=== PATIENT | male | born 1960 | race Caucasian/White ===

== ENCOUNTER 2016-10-19 19:10 | Inpatient (IN) | payer BC ==
[~2016-10-19 19:10] MED LIST: ANTIBIOTIC; DEXAMETHASONE4 M1 PO; KEPPRA500 M3 PO; MOTRIN IB200 M1 PO; TYLENOL325 M2 PO; VIAGRA PO
[2016-10-19] MEDS ORDERED: MIRALAX17 G2 PO (19:52)
[2016-10-19] MEDS ORDERED: TYLENOL325 M2 PO (19:52)
[2016-10-19] MEDS ORDERED: SENNA8.6 M2 PO (19:53)
[2016-10-19] MEDS ORDERED: KEPPRA500 M3 PO (19:54)
[2016-10-20 03:36] LABS: HCT-HEMATOCRIT 36.5 % (36.0-53.5); HGB-HEMOGLOBIN 12.9 gm/dl (13.5-17.0); IMMATURE GRANULOCYTES ABSOLUTE 0.01 tho/cmm (0-0.03); IMMATURE GRANULOCYTES PERCENT 0.3 % (0-0.3); LYMPH % 40.5 % (20-45); LYMPH ABSOLUTE COUNT 1.4 tho/cmm (0.8-4.5); MCHC MEAN CORPUSCULAR HGB CONC 35.3 % (32.0-36.0); MCV (MEAN CELL VOLUME) 87.7 fl (82.0-96.0); MEAN PLATELET VOLUME 8.9 cmc (9.4-12.4); MONO % 12.1 % (0-12); MONOCYTE ABSOLUTE COUNT 0.4 tho/cmm (0.0-1.2); NEUTROPHIL ABSOLUTE COUNT 1.6 tho/cmm (1.6-8.0); NEUTROPHIL-AUTOMATED 1.6 tho/cmm (1.6-8.0); NEUTROPHILS % 47.1 % (40-80); PLATELET COUNT 266 tho/cmm (150-450); RED BLOOD COUNT 4.16 mil/cmm (4.40-5.70); RED CELL DISTRIBUTION WIDTH 14.9 % (12.4-16.4); WHITE BLOOD COUNT 3.4 tho/cmm (4.0-10.0)
[2016-10-20 03:38] LABS: INR 1.1 INR (0.9-1.1); PROTHROMBIN TIME 12.2 SECONDS (9.0-13.6)
[2016-10-20 03:43] LABS: ALB/GLOB RATIO 0.8 (0.8-2.0); ALBUMIN 2.4 g/dl (3.5-5.2); ALKALINE PHOSPHATASE 59 U/L (40-129); ALT/SGPT 26 U/L (0-41); ANION GAP 12 mmol/L (5-15); AST/SGOT 19 U/L (0-40); BILIRUBIN,INDIRECT 0.4 mg/dL (0.0-1.0); BILIRUBIN,TOTAL 0.5 mg/dl (0.0-1.0); BLOOD UREA NITROGEN 9 mg/dl (6-25); CALCIUM 7.8 mg/dl (8.6-10.2); CARBON DIOXIDE-VENOUS 24 mmol/L (22-29); CHLORIDE 97 mmol/L (98-110); GLUCOSE 95 mg/dl (65-120); POTASSIUM 3.9 mmol/L (3.4-5.0); SODIUM 133 mmol/L (135-146); eGFR VALUE FOR BLACK >60 mL/Min
[2016-10-20 04:19] LABS: BILIRUBIN,DIRECT 0.1 mg/dl (0.0-0.3)
[2016-10-20 16:03] LABS: BASO % 0.6 % (0-2); HCT-HEMATOCRIT 38.4 % (36.0-53.5); HGB-HEMOGLOBIN 13.5 gm/dl (13.5-17.0); IMMATURE GRANULOCYTES ABSOLUTE 0.02 tho/cmm (0-0.03); IMMATURE GRANULOCYTES PERCENT 1.2 % (0-0.3); LYMPH % 55.5 % (20-45); MCH (MEAN CORPUSCULAR HGB) 30.8 pg (28.0-32.0); MCHC MEAN CORPUSCULAR HGB CONC 35.2 % (32.0-36.0); MCV (MEAN CELL VOLUME) 87.5 fl (82.0-96.0); MEAN PLATELET VOLUME 8.8 cmc (9.4-12.4); MONOCYTE ABSOLUTE COUNT 0.2 tho/cmm (0.0-1.2); NEUTROPHIL ABSOLUTE COUNT 0.6 tho/cmm (1.6-8.0); NEUTROPHIL-AUTOMATED 0.6 tho/cmm (1.6-8.0); NEUTROPHILS % 31.7 % (40-80); PLATELET COUNT 234 tho/cmm (150-450); RED BLOOD COUNT 4.39 mil/cmm (4.40-5.70); RED CELL DISTRIBUTION WIDTH 14.9 % (12.4-16.4)
[2016-10-20 16:06] LABS: ABG CO2 ARTERIAL 27 mmol/L (21-27); ARTERIAL BLD GAS O2 SATURATION 92 % (95-98); ARTERIAL BLOOD GAS PCO2 39 mmHg (32-45); ARTERIAL PO2 63 mmHg (70-100); BICARBONATE 25 mmol/L (21-28); BLOOD GAS BASE EXCESS 2 mM/L (-/+3); PH 7.43 Units (7.35-7.45)
[2016-10-20 16:07] LABS: INR 1.1 INR (0.9-1.1); PROTHROMBIN TIME 12.6 SECONDS (9.0-13.6)
[2016-10-20 16:19] LABS: WHITE BLOOD COUNT 1.7 tho/cmm (4.0-10.0)
[2016-10-20 16:21] LABS: ALB/GLOB RATIO 0.8 (0.8-2.0); ALBUMIN 2.4 g/dl (3.5-5.2); ALKALINE PHOSPHATASE 58 U/L (40-129); ALT/SGPT 21 U/L (0-41); ANION GAP 12 mmol/L (5-15); AST/SGOT 20 U/L (0-40); BILIRUBIN,TOTAL 0.7 mg/dl (0.0-1.0); BLOOD UREA NITROGEN 8 mg/dl (6-25); CALCIUM 7.6 mg/dl (8.6-10.2); CARBON DIOXIDE-VENOUS 25 mmol/L (22-29); CHLORIDE 96 mmol/L (98-110); GLUCOSE 89 mg/dl (65-120); POTASSIUM 3.9 mmol/L (3.4-5.0); SODIUM 133 mmol/L (135-146); eGFR VALUE FOR BLACK >60 mL/Min
[2016-10-20 16:37] LABS: PROCALCITONIN 1.12 ng/ml (0.05-0.09)
[2016-10-21 04:00] LABS: HCT-HEMATOCRIT 39.5 % (36.0-53.5); HGB-HEMOGLOBIN 13.7 gm/dl (13.5-17.0); MCH (MEAN CORPUSCULAR HGB) 30.3 pg (28.0-32.0); MCHC MEAN CORPUSCULAR HGB CONC 34.7 % (32.0-36.0); MCV (MEAN CELL VOLUME) 87.4 fl (82.0-96.0); MEAN PLATELET VOLUME 8.9 cmc (9.4-12.4); NEUTROPHIL-AUTOMATED 2.9 tho/cmm (1.6-8.0); PLATELET COUNT 247 tho/cmm (150-450); RED BLOOD COUNT 4.52 mil/cmm (4.40-5.70); RED CELL DISTRIBUTION WIDTH 14.9 % (12.4-16.4)
[2016-10-21 04:09] LABS: ALB/GLOB RATIO 0.7 (0.8-2.0); ALBUMIN 2.3 g/dl (3.5-5.2); ALKALINE PHOSPHATASE 56 U/L (40-129); ALT/SGPT 24 U/L (0-41); ANION GAP 12 mmol/L (5-15); AST/SGOT 23 U/L (0-40); BILIRUBIN,TOTAL 0.7 mg/dl (0.0-1.0); BLOOD UREA NITROGEN 7 mg/dl (6-25); CARBON DIOXIDE-VENOUS 27 mmol/L (22-29); CHLORIDE 93 mmol/L (98-110); CREATININE 0.61 mg/dl (0.67-1.17); GLUCOSE 92 mg/dl (65-120); POTASSIUM 4.2 mmol/L (3.4-5.0); SODIUM 132 mmol/L (135-146); eGFR VALUE FOR BLACK >60 mL/Min
[2016-10-21 07:14] LABS: BAND % 48 % (0-20); BAND ABSOLUTE COUNT 1.9 tho/cmm (0-2.0)
[2016-10-22 04:57] LABS: HCT-HEMATOCRIT 33.5 % (36.0-53.5); HGB-HEMOGLOBIN 11.7 gm/dl (13.5-17.0); MCH (MEAN CORPUSCULAR HGB) 30.7 pg (28.0-32.0); MCHC MEAN CORPUSCULAR HGB CONC 34.9 % (32.0-36.0); MCV (MEAN CELL VOLUME) 87.9 fl (82.0-96.0); MEAN PLATELET VOLUME 8.9 cmc (9.4-12.4); NEUTROPHIL-AUTOMATED 9.7 tho/cmm (1.6-8.0); PLATELET COUNT 270 tho/cmm (150-450); RED BLOOD COUNT 3.81 mil/cmm (4.40-5.70); RED CELL DISTRIBUTION WIDTH 14.9 % (12.4-16.4)
[2016-10-22 05:11] LABS: WHITE BLOOD COUNT 11.5 tho/cmm (4.0-10.0)
[2016-10-22 05:15] LABS: ANION GAP 9 mmol/L (5-15); BLOOD UREA NITROGEN 10 mg/dl (6-25); CALCIUM 8.4 mg/dl (8.6-10.2); CARBON DIOXIDE-VENOUS 30 mmol/L (22-29); CHLORIDE 99 mmol/L (98-110); CREATININE 0.52 mg/dl (0.67-1.17); GLUCOSE 135 mg/dl (65-120); SODIUM 138 mmol/L (135-146); eGFR VALUE FOR BLACK >60 mL/Min
[2016-10-22 08:16] LABS: BAND % 55 % (0-20); BAND ABSOLUTE COUNT 6.3 tho/cmm (0-2.0)
--- NOTE | 2016-10-22 11:35 | NUR ---
UP IN CHAIR, FAMILY AT BEDSIDE. GAVE OPTION TO SIGN COMMUNITY DNR/DNI FORM. PT WANTS TO DO SO WITH PRESENT. SHE WILL BE HER TUESDAY, WILL CHECK BACK THEN.
[2016-10-23 05:01] LABS: BASO % 0.4 % (0-2); BASO ABSOLUTE COUNT 0.1 tho/cmm (0.0-0.2); HGB-HEMOGLOBIN 11.2 gm/dl (13.5-17.0); IMMATURE GRANULOCYTES ABSOLUTE 0.09 tho/cmm (0-0.03); IMMATURE GRANULOCYTES PERCENT 0.5 % (0-0.3); LYMPH % 6.7 % (20-45); LYMPH ABSOLUTE COUNT 1.1 tho/cmm (0.8-4.5); MCH (MEAN CORPUSCULAR HGB) 29.9 pg (28.0-32.0); MCHC MEAN CORPUSCULAR HGB CONC 33.9 % (32.0-36.0); MCV (MEAN CELL VOLUME) 88.2 fl (82.0-96.0); MEAN PLATELET VOLUME 8.7 cmc (9.4-12.4); MONO % 7.5 % (0-12); MONOCYTE ABSOLUTE COUNT 1.3 tho/cmm (0.0-1.2); NEUTROPHIL ABSOLUTE COUNT 14.4 tho/cmm (1.6-8.0); NEUTROPHIL-AUTOMATED 14.4 tho/cmm (1.6-8.0); NEUTROPHILS % 84.9 % (40-80); PLATELET COUNT 277 tho/cmm (150-450); RED BLOOD COUNT 3.74 mil/cmm (4.40-5.70); WHITE BLOOD COUNT 16.9 tho/cmm (4.0-10.0)
[2016-10-23 05:35] LABS: ANION GAP 9 mmol/L (5-15); BLOOD UREA NITROGEN 9 mg/dl (6-25); CARBON DIOXIDE-VENOUS 30 mmol/L (22-29); CHLORIDE 100 mmol/L (98-110); GLUCOSE 144 mg/dl (65-120); POTASSIUM 3.7 mmol/L (3.4-5.0); SODIUM 139 mmol/L (135-146); eGFR VALUE FOR BLACK >60 mL/Min
[2016-10-24 04:22] LABS: HCT-HEMATOCRIT 32.7 % (36.0-53.5); HGB-HEMOGLOBIN 11.2 gm/dl (13.5-17.0); MCH (MEAN CORPUSCULAR HGB) 30.4 pg (28.0-32.0); MCHC MEAN CORPUSCULAR HGB CONC 34.3 % (32.0-36.0); MCV (MEAN CELL VOLUME) 88.9 fl (82.0-96.0); MEAN PLATELET VOLUME 9.2 cmc (9.4-12.4); NEUTROPHIL-AUTOMATED 13.2 tho/cmm (1.6-8.0); PLATELET COUNT 283 tho/cmm (150-450); RED BLOOD COUNT 3.68 mil/cmm (4.40-5.70); RED CELL DISTRIBUTION WIDTH 14.9 % (12.4-16.4); WHITE BLOOD COUNT 18.3 tho/cmm (4.0-10.0)
[2016-10-24 04:36] LABS: ANION GAP 8 mmol/L (5-15); BLOOD UREA NITROGEN 9 mg/dl (6-25); CARBON DIOXIDE-VENOUS 33 mmol/L (22-29); CHLORIDE 100 mmol/L (98-110); CREATININE 0.48 mg/dl (0.67-1.17); GLUCOSE 123 mg/dl (65-120); POTASSIUM 3.1 mmol/L (3.4-5.0); SODIUM 141 mmol/L (135-146); eGFR VALUE FOR BLACK >60 mL/Min
[2016-10-24 06:08] LABS: BAND % 4 % (0-20); BAND ABSOLUTE COUNT 0.7 tho/cmm (0-2.0)
[2016-10-24 09:30] LABS: URINE BILIRUBIN NEGATIVE (NEG); URINE BLOOD NEGATIVE (NEG); URINE GLUCOSE (UA) NEGATIVE (NEG); URINE KETONE NEGATIVE (NEG); URINE LEUKOCYTE ESTERASE NEGATIVE (NEG); URINE NITRITE NEGATIVE (NEG); URINE PROTEIN NEGATIVE (NEG)
[2016-10-24 09:31] LABS: URINE APPEARANCE CLEAR; URINE COLOR YELLOW; URINE SPECIFIC GRAVITY 1.013 (1.003-1.030)
[2016-10-24 10:31] LABS: PROCALCITONIN 0.57 ng/ml (0.05-0.09)
[2016-10-25 04:37] LABS: HCT-HEMATOCRIT 37.2 % (36.0-53.5); HGB-HEMOGLOBIN 12.5 gm/dl (13.5-17.0); MCH (MEAN CORPUSCULAR HGB) 30.3 pg (28.0-32.0); MCHC MEAN CORPUSCULAR HGB CONC 33.6 % (32.0-36.0); MCV (MEAN CELL VOLUME) 90.3 fl (82.0-96.0); MEAN PLATELET VOLUME 8.9 cmc (9.4-12.4); PLATELET COUNT 248 tho/cmm (150-450); RED BLOOD COUNT 4.12 mil/cmm (4.40-5.70); RED CELL DISTRIBUTION WIDTH 15.3 % (12.4-16.4); WHITE BLOOD COUNT 17.6 tho/cmm (4.0-10.0)
[2016-10-25 05:10] LABS: ANION GAP 10 mmol/L (5-15); BLOOD UREA NITROGEN 12 mg/dl (6-25); CALCIUM 7.9 mg/dl (8.6-10.2); CARBON DIOXIDE-VENOUS 28 mmol/L (22-29); CHLORIDE 101 mmol/L (98-110); CREATININE 0.55 mg/dl (0.67-1.17); GLUCOSE 86 mg/dl (65-120); POTASSIUM 3.8 mmol/L (3.4-5.0); SODIUM 139 mmol/L (135-146); eGFR VALUE FOR BLACK >60 mL/Min
[2016-10-25 06:09] LABS: PROCALCITONIN 0.33 ng/ml (0.05-0.09)
[2016-10-25 08:42] LABS: BAND % 15 % (0-20); BAND ABSOLUTE COUNT 2.6 tho/cmm (0-2.0)
[2016-10-26 04:52] LABS: HCT-HEMATOCRIT 40.4 % (36.0-53.5); HGB-HEMOGLOBIN 13.5 gm/dl (13.5-17.0); MCHC MEAN CORPUSCULAR HGB CONC 33.4 % (32.0-36.0); MCV (MEAN CELL VOLUME) 89.8 fl (82.0-96.0); MEAN PLATELET VOLUME 9.2 cmc (9.4-12.4); NEUTROPHIL-AUTOMATED 8.2 tho/cmm (1.6-8.0); PLATELET COUNT 234 tho/cmm (150-450); RED CELL DISTRIBUTION WIDTH 15.6 % (12.4-16.4)
[2016-10-26 07:48] LABS: BAND % 7 % (0-20); BAND ABSOLUTE COUNT 1.1 tho/cmm (0-2.0)
[2016-10-27 04:26] LABS: HCT-HEMATOCRIT 39.2 % (36.0-53.5); HGB-HEMOGLOBIN 13.4 gm/dl (13.5-17.0); MCH (MEAN CORPUSCULAR HGB) 30.3 pg (28.0-32.0); MCHC MEAN CORPUSCULAR HGB CONC 34.2 % (32.0-36.0); MCV (MEAN CELL VOLUME) 88.7 fl (82.0-96.0); MEAN PLATELET VOLUME 9.3 cmc (9.4-12.4); NEUTROPHIL-AUTOMATED 10.1 tho/cmm (1.6-8.0); PLATELET COUNT 205 tho/cmm (150-450); RED BLOOD COUNT 4.42 mil/cmm (4.40-5.70); RED CELL DISTRIBUTION WIDTH 15.7 % (12.4-16.4); WHITE BLOOD COUNT 15.2 tho/cmm (4.0-10.0)
[2016-10-27 04:41] LABS: ANION GAP 13 mmol/L (0-20); BLOOD UREA NITROGEN 10 mg/dl (6-24); CALCIUM 7.7 mg/dl (8.5-10.5); CARBON DIOXIDE-VENOUS 26 mmol/L (22-32); CHLORIDE 100 mmol/l (96-110); GLUCOSE 92 mg/dL (70-110); POTASSIUM 4.2 mmol/L (3.7-5.1); SODIUM 135 mmol/L (135-145); eGFR VALUE FOR BLACK >60 mL/Min
[2016-10-27 07:19] LABS: BAND % 17 % (0-20); BAND ABSOLUTE COUNT 2.6 tho/cmm (0-2.0)
[2016-10-27 07:22] LABS: WBC MORPHOLOGY TOXIC GRANULATION
[2016-10-28 04:35] LABS: HCT-HEMATOCRIT 34.4 % (36.0-53.5); HGB-HEMOGLOBIN 11.6 gm/dl (13.5-17.0); MCH (MEAN CORPUSCULAR HGB) 29.7 pg (28.0-32.0); MCHC MEAN CORPUSCULAR HGB CONC 33.7 % (32.0-36.0); MCV (MEAN CELL VOLUME) 88.2 fl (82.0-96.0); MEAN PLATELET VOLUME 9.2 cmc (9.4-12.4); NEUTROPHIL-AUTOMATED 11.8 tho/cmm (1.6-8.0); PLATELET COUNT 185 tho/cmm (150-450); WHITE BLOOD COUNT 14.9 tho/cmm (4.0-10.0)
[2016-10-28 04:43] LABS: BASO % 0.5 % (0-2); BASO ABSOLUTE COUNT 0.1 tho/cmm (0.0-0.2); EOS % 0.1 % (0-7); IMMATURE GRANULOCYTES PERCENT 8.7 % (0-0.3); LYMPH % 7.9 % (20-45); LYMPH ABSOLUTE COUNT 1.2 tho/cmm (0.8-4.5); MONO % 3.6 % (0-12); MONOCYTE ABSOLUTE COUNT 0.5 tho/cmm (0.0-1.2); NEUTROPHIL ABSOLUTE COUNT 11.8 tho/cmm (1.6-8.0); NEUTROPHILS % 79.2 % (40-80)
[2016-10-28 04:49] LABS: ANION GAP 14 mmol/L (0-20); BLOOD UREA NITROGEN 8 mg/dl (6-24); CALCIUM 7.5 mg/dl (8.5-10.5); CARBON DIOXIDE-VENOUS 23 mmol/L (22-32); CHLORIDE 102 mmol/l (96-110); GLUCOSE 74 mg/dL (70-110); POTASSIUM 4.1 mmol/L (3.7-5.1); SODIUM 135 mmol/L (135-145); eGFR VALUE FOR BLACK >60 mL/Min
[2016-10-28 22:57] LABS: PROCALCITONIN 0.31 ng/ml (0.05-0.09)
[2016-10-29 05:56] LABS: BASO % 0.3 % (0-2); HCT-HEMATOCRIT 33.2 % (36.0-53.5); HGB-HEMOGLOBIN 11.3 gm/dl (13.5-17.0); IMMATURE GRANULOCYTES ABSOLUTE 0.48 tho/cmm (0-0.03); IMMATURE GRANULOCYTES PERCENT 4.8 % (0-0.3); MCH (MEAN CORPUSCULAR HGB) 29.9 pg (28.0-32.0); MCV (MEAN CELL VOLUME) 87.8 fl (82.0-96.0); MEAN PLATELET VOLUME 9.1 cmc (9.4-12.4); MONO % 7.3 % (0-12); MONOCYTE ABSOLUTE COUNT 0.7 tho/cmm (0.0-1.2); NEUTROPHIL ABSOLUTE COUNT 7.8 tho/cmm (1.6-8.0); NEUTROPHIL-AUTOMATED 7.8 tho/cmm (1.6-8.0); NEUTROPHILS % 77.6 % (40-80); PLATELET COUNT 197 tho/cmm (150-450); RED BLOOD COUNT 3.78 mil/cmm (4.40-5.70); RED CELL DISTRIBUTION WIDTH 16.2 % (12.4-16.4); WHITE BLOOD COUNT 10.1 tho/cmm (4.0-10.0)
[2016-10-29 06:12] LABS: ANION GAP 11 mmol/L (0-20); BLOOD UREA NITROGEN 8 mg/dl (6-24); CALCIUM 7.5 mg/dl (8.5-10.5); CARBON DIOXIDE-VENOUS 28 mmol/L (22-32); CHLORIDE 101 mmol/l (96-110); GLUCOSE 98 mg/dL (70-110); POTASSIUM 3.6 mmol/L (3.7-5.1); SODIUM 136 mmol/L (135-145); eGFR VALUE FOR BLACK >60 mL/Min
[2016-10-30 05:47] LABS: ALB/GLOB RATIO 0.3 (0.8-2.0); ALBUMIN 1.4 g/dl (3.5-5.0); ALT/SGPT 38 U/L (12-78); BILIRUBIN,TOTAL 0.3 mg/dl (0.0-1.5); BLOOD UREA NITROGEN 9 mg/dl (6-24); CALCIUM 7.1 mg/dl (8.5-10.5); CARBON DIOXIDE-VENOUS 30 mmol/L (22-32); CHLORIDE 103 mmol/l (96-110); GLUCOSE 128 mg/dL (70-110); PHOSPHOROUS 2.6 mg/dl (2.5-4.9); SODIUM 139 mmol/L (135-145); eGFR VALUE FOR BLACK >60 mL/Min
[2016-10-30 05:49] LABS: ALKALINE PHOSPHATASE 60 U/L (33-138); PREALBUMIN 10.8 mg/dl (20.0-40.0)
[2016-10-30 06:00] LABS: ANION GAP 10 mmol/L (0-20); AST/SGOT 55 U/L (10-40); MAGNESIUM 1.9 mg/dl (1.3-2.6)
[2016-10-31 04:56] LABS: HGB-HEMOGLOBIN 11.1 gm/dl (13.5-17.0); PLATELET COUNT 261 tho/cmm (150-450)
[2016-10-31 05:28] LABS: ANION GAP 13 mmol/L (0-20); BLOOD UREA NITROGEN 7 mg/dl (6-24); CALCIUM 7.4 mg/dl (8.5-10.5); CARBON DIOXIDE-VENOUS 28 mmol/L (22-32); CHLORIDE 97 mmol/l (96-110); GLUCOSE 118 mg/dL (70-110); SODIUM 134 mmol/L (135-145); eGFR VALUE FOR BLACK >60 mL/Min
[2016-10-31 05:37] LABS: POTASSIUM 3.7 mmol/L (3.7-5.1)
[2016-11-01 05:31] LABS: BASO % 0.3 % (0-2); BASO ABSOLUTE COUNT 0.1 tho/cmm (0.0-0.2); EOS % 0.1 % (0-7); HCT-HEMATOCRIT 31.4 % (36.0-53.5); HGB-HEMOGLOBIN 10.8 gm/dl (13.5-17.0); IMMATURE GRANULOCYTES ABSOLUTE 0.31 tho/cmm (0-0.03); LYMPH % 11.3 % (20-45); LYMPH ABSOLUTE COUNT 1.7 tho/cmm (0.8-4.5); MCH (MEAN CORPUSCULAR HGB) 30.3 pg (28.0-32.0); MCHC MEAN CORPUSCULAR HGB CONC 34.4 % (32.0-36.0); MCV (MEAN CELL VOLUME) 88.2 fl (82.0-96.0); MONOCYTE ABSOLUTE COUNT 1.1 tho/cmm (0.0-1.2); NEUTROPHIL ABSOLUTE COUNT 12.1 tho/cmm (1.6-8.0); NEUTROPHIL-AUTOMATED 12.1 tho/cmm (1.6-8.0); NEUTROPHILS % 79.3 % (40-80); PLATELET COUNT 311 tho/cmm (150-450); RED BLOOD COUNT 3.56 mil/cmm (4.40-5.70); RED CELL DISTRIBUTION WIDTH 16.4 % (12.4-16.4)
[2016-11-01 05:43] LABS: WHITE BLOOD COUNT 15.2 tho/cmm (4.0-10.0)
[2016-11-01 05:48] LABS: ALB/GLOB RATIO 0.3 (0.8-2.0); ALBUMIN 1.5 g/dl (3.5-5.0); ALKALINE PHOSPHATASE 90 U/L (33-138); BILIRUBIN,TOTAL 0.3 mg/dl (0.0-1.5); BLOOD UREA NITROGEN 8 mg/dl (6-24); CALCIUM 7.3 mg/dl (8.5-10.5); CARBON DIOXIDE-VENOUS 27 mmol/L (22-32); CHLORIDE 101 mmol/l (96-110); GLUCOSE 124 mg/dL (70-110); SODIUM 135 mmol/L (135-145); eGFR VALUE FOR BLACK >60 mL/Min
[2016-11-01 05:57] LABS: ALT/SGPT 76 U/L (12-78); ANION GAP 11 mmol/L (0-20); AST/SGOT 92 U/L (10-40); POTASSIUM 3.9 mmol/L (3.7-5.1)
[2016-11-02 05:52] LABS: BASO % 0.4 % (0-2); BASO ABSOLUTE COUNT 0.1 tho/cmm (0.0-0.2); EOS % 0.1 % (0-7); HCT-HEMATOCRIT 31.2 % (36.0-53.5); HGB-HEMOGLOBIN 10.9 gm/dl (13.5-17.0); IMMATURE GRANULOCYTES ABSOLUTE 0.33 tho/cmm (0-0.03); IMMATURE GRANULOCYTES PERCENT 2.5 % (0-0.3); LYMPH ABSOLUTE COUNT 1.8 tho/cmm (0.8-4.5); MCH (MEAN CORPUSCULAR HGB) 30.6 pg (28.0-32.0); MCHC MEAN CORPUSCULAR HGB CONC 34.9 % (32.0-36.0); MCV (MEAN CELL VOLUME) 87.6 fl (82.0-96.0); MEAN PLATELET VOLUME 9.2 cmc (9.4-12.4); MONO % 8.9 % (0-12); MONOCYTE ABSOLUTE COUNT 1.2 tho/cmm (0.0-1.2); NEUTROPHIL ABSOLUTE COUNT 10.1 tho/cmm (1.6-8.0); NEUTROPHIL-AUTOMATED 10.1 tho/cmm (1.6-8.0); NEUTROPHILS % 75.1 % (40-80); PLATELET COUNT 336 tho/cmm (150-450); RED BLOOD COUNT 3.56 mil/cmm (4.40-5.70); RED CELL DISTRIBUTION WIDTH 16.8 % (12.4-16.4); WHITE BLOOD COUNT 13.4 tho/cmm (4.0-10.0)
[2016-11-02 06:12] LABS: ALB/GLOB RATIO 0.3 (0.8-2.0); ALBUMIN 1.6 g/dl (3.5-5.0); ALKALINE PHOSPHATASE 88 U/L (33-138); ALT/SGPT 70 U/L (12-78); BILIRUBIN,TOTAL 0.4 mg/dl (0.0-1.5); BLOOD UREA NITROGEN 9 mg/dl (6-24); CALCIUM 7.5 mg/dl (8.5-10.5); CARBON DIOXIDE-VENOUS 26 mmol/L (22-32); CHLORIDE 99 mmol/l (96-110); GLUCOSE 132 mg/dL (70-110); SODIUM 133 mmol/L (135-145); eGFR VALUE FOR BLACK >60 mL/Min
[2016-11-02 06:15] LABS: ANION GAP 12 mmol/L (0-20); AST/SGOT 58 U/L (10-40); POTASSIUM 4.2 mmol/L (3.7-5.1)
[2016-11-02 07:09] LABS: WBC MORPHOLOGY TOXIC GRANULATION
--- NOTE | 2016-11-02 15:52 | NUR ---
VISIT MADE WITH Dave MONTILLA NP. F/U VISIT MADE WITH , PT RESTING, NICK WOODS, ANITA, AT BEDSIDE. GATHERING FAMILY TO DECIDE ON A DC PLAN. ASKING ABOUT MEETING WITH MORE DOCTORS IF THE FAMILY NEEDS THAT TO MAKE A DECISION. TOLD WE WOULD DO THE BEST WE CAN TO MEET THEIR NEEDS. ALSO OFFERED TO READ DOCTOR PROGRESS NOTES TO FAMILY IF THAT WOULD HELP. WILL UPDATE Dave MONTILLA NP ON FAMILY REQUEST. LESS EMOTIONAL THIS AFTERNOON. PT AWAKE BUT DID NOT PARTICIPATE IN THE CONVERSATION.
[2016-11-03 08:28] LABS: ANION GAP 10 mmol/L (0-20); BLOOD UREA NITROGEN 10 mg/dl (6-24); CALCIUM 7.7 mg/dl (8.5-10.5); CARBON DIOXIDE-VENOUS 26 mmol/L (22-32); CHLORIDE 106 mmol/l (96-110); GLUCOSE 130 mg/dL (70-110); SODIUM 138 mmol/L (135-145); eGFR VALUE FOR BLACK >60 mL/Min
[2016-11-03 08:29] LABS: POTASSIUM 4.3 mmol/L (3.7-5.1)
[2016-11-03 10:50] LABS: BASO % 0.5 % (0-2); BASO ABSOLUTE COUNT 0.1 tho/cmm (0.0-0.2); EOS % 0.5 % (0-7); EOSINOPHIL ABSOLUTE COUNT 0.1 tho/cmm (0.0-0.7); HCT-HEMATOCRIT 31.4 % (36.0-53.5); HGB-HEMOGLOBIN 10.7 gm/dl (13.5-17.0); IMMATURE GRANULOCYTES PERCENT 4.4 % (0-0.3); LYMPH % 13.7 % (20-45); LYMPH ABSOLUTE COUNT 1.6 tho/cmm (0.8-4.5); MCH (MEAN CORPUSCULAR HGB) 30.6 pg (28.0-32.0); MCHC MEAN CORPUSCULAR HGB CONC 34.1 % (32.0-36.0); MCV (MEAN CELL VOLUME) 89.7 fl (82.0-96.0); MEAN PLATELET VOLUME 9.4 cmc (9.4-12.4); MONO % 8.7 % (0-12); NEUTROPHIL ABSOLUTE COUNT 8.2 tho/cmm (1.6-8.0); NEUTROPHIL-AUTOMATED 8.2 tho/cmm (1.6-8.0); NEUTROPHILS % 72.2 % (40-80); PLATELET COUNT 388 tho/cmm (150-450); RED CELL DISTRIBUTION WIDTH 17.7 % (12.4-16.4); WHITE BLOOD COUNT 11.3 tho/cmm (4.0-10.0)
[2016-11-03 11:30] LABS: C-REACTIVE PROTEIN 5.8 mg/dl (0-0.9)
[2016-11-03 12:44] LABS: PROCALCITONIN 0.14 ng/ml (0.05-0.09)
[2016-11-04 05:20] LABS: ANION GAP 9 mmol/L (0-20); BLOOD UREA NITROGEN 10 mg/dl (6-24); CALCIUM 8.1 mg/dl (8.5-10.5); CARBON DIOXIDE-VENOUS 27 mmol/L (22-32); CHLORIDE 108 mmol/l (96-110); GLUCOSE 106 mg/dL (70-110); SODIUM 140 mmol/L (135-145); eGFR VALUE FOR BLACK >60 mL/Min
[2016-11-04 05:37] LABS: POTASSIUM 3.9 mmol/L (3.7-5.1)
[2016-11-05] MEDS ORDERED: OXYCODONE HCL5 M1 PO (12:32)
[2016-11-05] MEDS ORDERED: OXYCONTIN15 M1 PO (12:34)
[2016-11-05] MEDS ORDERED: LEVAQUIN500 M1 PO (12:36)
[2016-11-05] MEDS ORDERED: IBUPROFEN600 M1 PO (12:36)
[2016-11-05] MEDS ORDERED: NYSTATIN100000 UNI SSW (12:37)
== END 2016-11-05 15:50 | DRG 853 ==
LOC: 5WF 19:10 → PACU 10-20 10:38 → 5WF 10-20 12:05 → CCU 10-20 17:29 → PCUB 10-22 07:50 → ORW 10-26 09:15 → PACU 10-26 12:13 → PCUB 10-26 13:38
PROVIDERS: Family Medicine; Hospitalist; Internal Medicine; Internal Medicine Hematology & Oncology; Physician Assistant; Surgery; ADMIT Internal Medicine Hematology & Oncology
PROC: 0DTN0ZZ Resection of Sigmoid Colon, Open Approach (ICD-10-PCS; principal; 2016-10-20)
PROC: 3E0F7GC Introduction of Other Therapeutic Substance into Respiratory Tract, Via Natural or Artificial Opening (ICD-10-PCS; principal; 2016-10-20)
PROC: 02HV33Z Insertion of Infusion Device into Superior Vena Cava, Percutaneous Approach (ICD-10-PCS; principal; 2016-10-20)
PROC: 0D1M0Z4 Bypass Descending Colon to Cutaneous, Open Approach (ICD-10-PCS; principal; 2016-10-20)
PROC: B548ZZA Ultrasonography of Superior Vena Cava, Guidance (ICD-10-PCS; principal; 2016-10-20)
PROC: 0JB80ZZ Excision of Abdomen Subcutaneous Tissue and Fascia, Open Approach (ICD-10-PCS; 2016-10-26)
DX: A41.9 Sepsis, unspecified organism (principal); J96.01 Acute respiratory failure with hypoxia; R65.21 Severe sepsis with septic shock; E43 Unspecified severe protein-calorie malnutrition; K57.20 Diverticulitis of large intestine with perforation and abscess without bleeding; B37.81 Candidal esophagitis; C79.31 Secondary malignant neoplasm of brain; E87.1 Hypo-osmolality and hyponatremia; J44.1 Chronic obstructive pulmonary disease with (acute) exacerbation; K56.7 Ileus, unspecified; T81.32XA Disruption of internal operation (surgical) wound, not elsewhere classified, initial encounter; I47.1 Supraventricular tachycardia; G40.909 Epilepsy, unspecified, not intractable, without status epilepticus; H66.92 Otitis media, unspecified, left ear; K59.00 Constipation, unspecified; Z51.5 Encounter for palliative care; D72.829 Elevated white blood cell count, unspecified; Z68.26 Body mass index [BMI] 26.0-26.9, adult; Z66 Do not resuscitate; F17.210 Nicotine dependence, cigarettes, uncomplicated; Z92.3 Personal history of irradiation; E87.70 Fluid overload, unspecified
CPT/HCPCS: C1751; C9113; J0131; J0694; J1170; J1200; J1447; J1650; J1885; J1953; J1956; J2543; J2920; J2930; J2997; J3010; J3370; J3480; J3590; J7030; J7040; J7050; J7512; J7999; Q9967